=== PATIENT | female | born 1960 | race Caucasian/White ===

== ENCOUNTER 2023-04-24 12:42 | Emergency (ER) | payer SELFPAY ==
[~2023-04-24] VITALS: Ht 172.7 cm; Wt 77.4 kg
[2023-04-24] MEDS ORDERED: GABAPENTIN 300 MG CAP PO ONE ×2 (13:30→13:45)
[2023-04-24 13:41] VITALS: BP 147/77
[2023-04-24] MEDS ORDERED: HYDR-4798 PO (14:47)
[2023-04-24] MEDS ORDERED: IBUP-1455 PO (14:47)
== END 2023-04-24 14:34 | disposition home or self-care (01) ==
LOC: ER 12:42
DX: M47.812 Spondylosis without myelopathy or radiculopathy, cervical region (principal); M54.12 Radiculopathy, cervical region
CPT/HCPCS: 72040; 73030; 93005